=== PATIENT | female | born 1995 | race Caucasian/White ===

== ENCOUNTER 2016-12-25 22:14 | Emergency (ER) | payer OTHER ==
[~2016-12-25] VITALS: Ht 163 cm; Wt 63.2 kg
[~2016-12-25 22:14] MED LIST: Antibiotic; ZITHROMAX Z PA250 MG PO; ZOFRAN 4MG T4 MG/TAB PO; [UNRECOGNIZED DRUG - OTHER]
[2016-12-25 22:17] VITALS: BP 127/74; TEMP 98
[2016-12-26 00:25] VITALS: PULSE 82
== END 2016-12-26 00:24 | disposition home or self-care (01) ==
LOC: COL.ER 22:14
DX: S93.601A Unspecified sprain of right foot, initial encounter (principal); S90.31XA Contusion of right foot, initial encounter; X50.1XXA Overexertion from prolonged static or awkward postures, initial encounter; Y92.830 Public park as the place of occurrence of the external cause

== ENCOUNTER 2018-11-24 23:42 | Emergency (ER) | payer OTHER ==
[~2018-11-24] VITALS: Ht 160 cm; Wt 70.9 kg
[2018-11-24 23:53] VITALS: BP 119/65; TEMP 98.2
[2018-11-25 01:55] VITALS: PULSE 72
== END 2018-11-25 01:55 | disposition home or self-care (01) ==
LOC: COL.ER 23:42
DX: S93.401A Sprain of unspecified ligament of right ankle, initial encounter (principal); X50.0XXA Overexertion from strenuous movement or load, initial encounter; Y92.009 Unspecified place in unspecified non-institutional (private) residence as the place of occurrence of the external cause